=== PATIENT | male | born 1985 | race African-American/Black ===

== ENCOUNTER 2020-11-18 21:42 | Emergency (ER) | payer BC, SELFPAY ==
[2020-11-18 21:44] VITALS: BP 152/108; PULSE 95; RESP 18; TEMP 36.5; O2SAT 99; BMI 28.2
[2020-11-18 22:00] LABS: Bedside Glucose 112 mg/dL (70-110)
[2020-11-18 22:01] VITALS: PULSE 82; RESP 16; O2SAT 96
--- NOTE | 2020-11-18 22:21 | CT_ITS ---
STUDY: CT BRAIN WITHOUT CONTRAST REASON FOR EXAM: Male, 34 years old. Dizziness RADIATION DOSAGE (If Supplied By Facility): CTDIvol = ( 44.99 ) mGy, DLP = ( 815.79 ) mGycm TECHNIQUE: Transaxial CT imaging of the brain was performed without administration of intravenous contrast material. Individualized dose optimization techniques were used for this CT. COMPARISON: No relevant priors. FINDINGS: Normal soft tissue structures. Normal calvarium. Normal size ventricles and extra-axial spaces for the patient''s age. Normal white matter tracts of the cerebral hemispheres. Normal basal ganglia and thalami. Normal brainstem. Normal cerebellum. There is no intracranial hemorrhage. There are no findings of an acute ischemic infarction. Normal visualized paranasal sinuses. CT/Brain/Head without Contrast IMPRESSION: Normal unenhanced CT scan of the brain. Electronically Signed: Anatoly Castro MD at 23:02 EDT Tel , Service support ,
--- NOTE | 2020-11-18 22:22 | EDS_ITS ---
HPI History of Present Illness Chief Complaint: Dizziness Informant: patient Narrative Narrative: Patient is a 34-year-old male with history of Crohn's disease on some type of infusion but does not know the name of it, presenting with increased stuttering and dizziness. Patient states his mom is told that he has been stuttering more over the past few months. In addition he has had episodes of dizziness or feeling like he is drunk. 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 He notes over the past few days has had episodes of the feeling like the room is spinning. He states earlier tonight he was watching TV when suddenly the room was spinning. He denies associated nausea or vomiting. He Nuys any other complaints at this time. He denies any weakness, headache or v ision changes. [facility] Medical History (Updated 11/18/20 @ 23:[address] Aretha Patton, ) Crohn's disease Home Medications ibuprofen 600 mg PO Q6H PRN PRN #30 tablet 04/15/13 [Rx Last Taken Unknown] meclizine 25 mg PO TID PRN #20 tab 11/18/20 [Rx Last Taken Unknown] Allergy/AdvReac Type Severity Reaction Status Date / Time azithromycin [From Zithromax] Allergy Rash Verified 11/18/20 21:44 Social History Smoking Status: Current every day smoker tobacco type: cigarettes ROS ROS ED Constitutional Constitutional ED: Denies chills, fever(s) or malaise Eyes Eyes: Denies blurry vision or loss of vision ENT ENT ED: Denies ear pain, rhinorrhea or sore throat Cardiovascular Cardiovascular: Denies chest pain or dizziness Respiratory/Chest Respiratory/Chest: Denies cough or dyspnea Gastrointestinal Gastrointestinal: Reports nausea; Denies vomiting Genitourinary Genitourinary ED: Denies dysuria or hematuria Musculoskeletal Musculoskeletal: Denies arthralgias or myalgias Integumentary Denies rash or wounds Neurologic Neurologic: Reports other Details: dizziness ; Denies focal weakness or headache(s) Psychiatric Psychiatric: Denies anxiety or behavioral changes EXAM Physical Exam Const Vital Signs: 11/18/20 21:44 11/18/20 22:01 Temperature 97.7 F L Temperature Source Temporal Pulse Rate 95 82 Respiratory Rate 18 16 Respiratory Pattern Normal Blood Pressure 152/108 H Blood Pressure Mean 122 Pulse Ox 99 96 Oxygen Delivery Method Room Air Room Air Positive well nourished and well developed General Appearance ED: well developed HEENT Reports TM's clear and moist mucous membranes Negative for tenderness Tympanic Membrane ED: Yes TM's clear Eyes PERRL and EOMs intact bilaterally Eyes Narrative: Patient not have any nystagmus however he started having symptoms again and when I went and reevaluated he had nystagmus with rightward g aze, bilateral horizontal Neck no lymphadenopathy and supple Chest Wall inspection of chest normal Resp normal respiratory effort and clear to auscultation bilaterally Cardio regular rate GI normal to inspection, nondistended, normoactive bowel sounds and non-tender Neuro oriented x3, CN's II-XII intact bilaterally and no sensory deficits noted Neuro Narrative: No truncal ataxia. Normal [id number]. Normal gait. Sensorium / Orientation: alert Motor Exam: strength 5/5 throughout; Negative for general weakness Psych mental status grossly normal Skin no rashes or lesions noted MDM MDM MDM Narrative Medical decision making narrative: Patient evaluated for increased stuttering as well as intermittent dizziness that is going on for the past 3 weeks. He symptoms really sound like peripheral vertigo however since he has had some speech changes as well I will obtain CT. The CT does not show any acute process. Patient's basic lab work is remarkable only for mildly elevated creatinine 1.32. Patient is counseled to increase his water intake. He is given a dose of meclizine in the ER. I suspect he has peripheral vertigo. He instructed on canalith repositioning maneuver. He is encouraged to follow-up with his primary care doctor. 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 Patient is counseled on signs and symptoms requiring return to the emergency room. Patient verbalizes agreement and understand this plan. Patient discharged home in stable and improved condition. Lab Data Attestation: I reviewed the patient's lab results. Labs: Laboratory Results - last 24 hr 11/18/20 11/18/20 11/18/20 21:55 21:59 21:59 WBC 11.0 RBC 5.45 Hgb 15.6 Hct 47.5 MCV 87.2 MCH 28.6 MCHC 32.8 RDW Std Deviation 40.8 RDW Coeff of Esme 12.9 Plt Count 280 MPV 9.6 Immature Gran % (Auto) 0.200 Neut % (Auto) 42.0 L Lymph % (Auto) 45.3 H Smith % (Auto) 8.5 Eos % (Auto) 3.5 Baso % (Auto) 0.5 Absolute Neuts (auto) 4.6 Absolute Lymphs (auto) 4.99 H Nucleated RBC % 0 Sodium 138 Potassium 4.1 Chloride 108 H Carbon Dioxide 27.0 Anion Gap 3 L BUN 21 H Creatinine 1.32 H Estim Creat Clear Calc 78.85 Est GFR (MDRD) Af Amer 79 Est GFR (MDRD) Non-Af 66 BUN/Creatinine Ratio 15.9 Glucose 109 H Calcium 8.8 POC Glucose 112 H Radiography Diagnostic Testing: Radiology Impression Brain CT 11/18/20 22:21 IMPRESSION: Normal unenhanced CT scan of the brain. Electronically Signed: Anatoly Castro MD at 23:02 EDT Tel , Service support , Discharge Plan Triage Chief Complaint: Dizziness ED Provider: Aretha Patton Dx/Rx/DC Orders Clinical Impression: Episodic peripheral vertigo Instructions: ED BPV Vertigo, ED Dehydration (Adult) Prescriptions: New meclizine 25 mg tablet 25 mg PO TID PRN (Reason: dizziness) Qty: 20 RF: 0 No Action ibuprofen 600 MG tablet 600 mg PO Q6H PRN PRN (Reason: Pain) Qty: 30 RF: 0 Primary Care Provider: Silviano Hart Referrals: Silviano Hart MD [Primary Care Provider] - Activity Restrictions/Additional Instructions: Increase your fluid intake with water. Drink less alcohol and soda. Disposition Disposition: Home, Self Care
[2020-11-18 22:38] LABS: Absolute Lymphocyte Count 4.99 X10^3/uL (0.83-4.51); Absolute Neutrophil Count 4.6 X10^3/uL (2.0-7.7); Basophil# 0.06 X10^3/uL; Basophil% 0.5 % (0-1); Eosinophil# 0.38 X10^3/uL; Eosinophils% 3.5 % (0-5); Hematocrit 47.5 % (40-54); Hemoglobin 15.6 g/dL (13.0-16.5); Lymphocyte # 4.99 X10^3/ul (0.83-4.51); Lymphocyte % 45.3 % (19-41); Mean Corp Hgb Conc 32.8 g/dL (32-36); Mean Corpuscular Hgb 28.6 pg (27.0-32.0); Mean Corpuscular Volume 87.2 fL (80-94); Mean Platelet Vol. 9.6 fl (6.2-12.0); Monocyte# 0.94 X10^3/uL; Monocyte% 8.5 % (0-10); NRBC Flagged by Analyzer 0 % (0-5); Neutrophil # 4.62 X10^3/uL (2.7-7.7); Platelet Count 280 K/mm3 (150-450); RBC Distribution Width CV 12.9 % (11.6-14.6); RBC Distribution Width SD 40.8 fl (35.1-43.9); Red Blood Count 5.45 M/mm3 (4.6-6.2)
[2020-11-18 22:44] LABS: Anion Gap 3 (5-15); BUN 21 mg/dL (7-18); BUN/Creat Ratio 15.9 RATIO (10-20); Calcium,Total 8.8 mg/dL (8.5-10.1); Chloride 108 mmol/L (98-107); Creatinine, Serum 1.32 mg/dL (0.70-1.30); EST Glomerular Filtration Rate 66 mL/min (>60); Est Glom Filt Rate - Afr Amer 79 mL/min (>60); Estimated Creatinine Clearance 78.85 ml/min; Glucose 109 mg/dL (74-106); Potassium 4.1 mmol/L (3.5-5.1); Sodium Level 138 mmol/L (136-145)
[2020-11-18] MEDS: Meclizine HCl 25 MG Tablet PO (23:12)
[2020-11-19 00:40] VITALS: BP 116/79; PULSE 71; RESP 16; O2SAT 97
== END 2020-11-19 00:41 | disposition home or self-care (01) ==
PROVIDERS: Emergency Provider Emergency Medicine; PCP Family Medicine
DX: H81.399 Other peripheral vertigo, unspecified ear (principal); F17.210 Nicotine dependence, cigarettes, uncomplicated
CPT/HCPCS: 70450; 80048; 82962; 85025; 99285; A4216

== ENCOUNTER 2021-05-16 15:45 | Emergency (ER) | payer BC, SELFPAY ==
[2021-05-16 15:46] VITALS: BP 146/94; PULSE 106; RESP 16; TEMP 36.3; O2SAT 98; BMI 28.0
--- NOTE | 2021-05-16 16:29 | ED.VIS.LOWEX ---
HPI History of Present Illness HPI Narrative: Patient presents with left ankle injury that occurred yesterday. Patient states he was playing basketball with his son and he landed on a piece of wood. Patient inverted his left ankle. Patient denies any paresthesias or weakness. Patient states the pain is worse with ambulation. Patient describes the pain as aching. Patient denies any snapping or popping sensation. Patient states he has had ankle fractures in the past and is concerned for an ankle fracture today. Chief Complaint: Lower Extremity Injury Informant: patient Occured/Mechanism Comment: Inversion injury Onset/Context/Timing Onset: Yesterday Context: Sudden Onset Timing: Continuous Quality of Pain: Aching Worsened by: Ambulation Relieved by: Rest Associated Symptoms Associated Symptoms: Negative for Parasthesia, Weakness and Loss of Funtion [facility] Medical History (Updated 05/16/21 @ 17:[address] Brendan Berrios DO) Crohn's disease Home Medications ibuprofen 600 mg PO Q6H PRN PRN #30 tablet 04/15/13 [Rx Last Taken Unknown] meclizine 25 mg PO TID PRN #20 tab 11/18/20 [Rx Last Taken Unknown] Allergy/AdvReac Type Severity Reaction Status Date / Time azithromycin [From Zithromax] Allergy Rash Verified 05/16/21 15:47 Surgical History (Updated 05/16/21 @ 16:[address] Brendan Berrios DO) History of ankle surgery Social History Smoking Status: Current every day smoker tobacco type: cigarettes ROS ROS ED Constitutional Constitutional ED: Denies chills or fever(s) Eyes Eyes: Denies blurry vision or change in vision ENT ENT ED: Denies rhinorrhea or sore throat Cardiovascular Cardiovascular: Denies chest pain or palpitations Respiratory/Chest Respiratory/Chest: Denies cough or dyspnea Gastrointestinal Gastrointestinal: Denies nausea or vomiting Genitourinary Genitourinary ED: Denies dysuria or hematuria Musculoskeletal Musculoskeletal: Denies back pain or neck pain Integumentary Denies abscess or rash Neurologic Neurologic: Denies headache(s) or weakness Allergic/Immunologic Allergic/Immunologic ED: Denies mouth swelling or urticaria EXAM Physical Exam Const Vital Signs: 05/16/21 15:46 Temperature 97.3 F L Temperature Source Temporal Pulse Rate 106 H Respiratory Rate 16 Blood Pressure 146/94 H Blood Pressure Mean 111 Pulse Ox 98 Oxygen Delivery Method Room Air Positive well nourished and well developed General Appearance ED: well developed HEENT Reports moist mucous membranes Neck full ROM Extremity Extremity Narrative: There is tenderness, edema, and ecchymosis over the lateral aspect of the left ankle. There is no obvious deformity. Range of motion was limited in all motions of the left ankle secondary to pain. There is no tenderness over the proximal fibula. There is no tenderness over the fifth metatarsal. Pedal pulses are equal bilaterally. Sensation was intact to light touch in all digits. Capillary refill was less than 2 seconds in all digits. Neuro oriented x3, CN's II-XII intact bilaterally, moves all extremities and no sensory deficits noted Sensorium / Orientation: alert Motor Exam: strength 5/5 throughout Psych mental status grossly normal MDM MDM MDM Narrative Medical decision making narrative: X-rays of the left ankle were obtained. There are 3 views. On my interpretation, there is no acute fracture. There is no dislocation. There is some mild soft tissue swelling. Radiologist also interpreted the x-rays and agrees. Patient was given an Aircast. Patient was instructed to ice and elevate the left ankle. Patient was instructed to continue Tylenol or ibuprofen as needed for pain. Patient was instructed to follow-up with his primary care physician in 5 to 7 days. Patient understood and was agreeable with the plan. All questions were answered. Radiography Diagnostic Testing: Clinical Impression(s) from Imaging Studies Ankle X-Ray 05/16/21 16:35 IMPRESSION: Normal x-ray examination of the ankle. Electronically Signed: Elias Bowers MD at 16:55 EST , Discharge Plan Triage Chief Complaint: Lower Extremity Injury ED Provider: Brendan Berrios Dx/Rx/DC Orders Clinical Impression: Left ankle sprain Instructions: ED Ankle Sprain (Adult) Prescriptions: No Action ibuprofen 600 MG tablet 600 mg PO Q6H PRN PRN (Reason: Pain) Qty: 30 RF: 0 meclizine 25 mg tablet 25 mg PO TID PRN (Reason: dizziness) Qty: 20 RF: 0 Primary Care Provider: Silviano Hart Referrals: Silviano Hart MD [Primary Care Provider] - 5-7 Days Disposition Disposition: Home, Self Care
--- NOTE | 2021-05-16 16:35 | RAD_ITS ---
STUDY: X-RAY - LEFT ANKLE REASON FOR EXAM: Male, 35 years old. Injury/Pain TECHNIQUE: 3 view(s) of the ankle. COMPARISON: None. FINDINGS: Normal visualized distal tibia and fibula. Normal medial and lateral malleoli. Normal tibiotalar articulation and ankle mortise. Normal visualized talus and calcaneus. The visualized subtalar, talonavicular, calcaneocuboid and tarsal articulations are normal. The soft tissue structures are unremarkable. RAD/Ankle min 3 Views IMPRESSION: Normal x-ray examination of the ankle. Electronically Signed: Elias Bowers MD at 16:55 EST ,
== END 2021-05-16 18:09 | disposition home or self-care (01) ==
PROVIDERS: Emergency Provider Emergency Medicine; PCP Family Medicine; Visit Provider Emergency Medicine
DX: S93.402A Sprain of unspecified ligament of left ankle, initial encounter (principal); F17.210 Nicotine dependence, cigarettes, uncomplicated; X58.XXXA Exposure to other specified factors, initial encounter; Z79.899 Other long term (current) drug therapy
CPT/HCPCS: 73610; 99283